=== PATIENT | female | born 1965 | race Caucasian/White ===

== ENCOUNTER → 2024-06-14 14:22 | Outpatient (REF) | payer BC, SELFPAY | LOC: HWRAD 14:22 | PROVIDERS: ATTENDING PHYSICIAN Family Medicine | DX: R05.8 Other specified cough (principal) | CPT/HCPCS: 71046 ==

== ENCOUNTER → 2025-03-01 08:21 | Outpatient (REF) | payer BC, SELFPAY | LOC: WDC 08:21 | PROVIDERS: ATTENDING PHYSICIAN Obstetrics & Gynecology; FAMILY PHYSICIAN Family Medicine | DX: Z12.31 Encounter for screening mammogram for malignant neoplasm of breast (principal) | CPT/HCPCS: 77063; 77067 ==